=== PATIENT | male | born 2000 | race Caucasian/White ===

== ENCOUNTER 2019-07-02 14:03 | Emergency (ER) | payer MEDICAID ==
[~2019-07-02] VITALS: Ht 172.7 cm; Wt 61.0 kg
[2019-07-02] MEDS: VISCOUS LIDOCAINE 2% 15 ML UDC PO STA (14:17)
[2019-07-02] MEDS: MAGNESIUM/ALUMINUM HYDROXIDE/SIMETHICONE 30ML UDC PO STA (14:17)
[2019-07-02] MEDS: FAMOTIDINE 20MG/2ML VIAL IV ONE (14:30)
[2019-07-02] MEDS: ONDANSETRON HCL 4MG/2ML INJ IV ONE (14:30)
[2019-07-02] MEDS: DICYCLOMINE HCL 10MG/ML 2ML AMP IM ONE (14:30)
[2019-07-02] MEDS: SODIUM CHLORIDE 0.9% 1,000 ML IV ONE ×2 (14:30→16:15)
[2019-07-02 15:23] LABS: BASOPHILS % 0.3 % (0.0-2.0); EOSINOPHILS % 0.2 % (0.0-5.0); HEMOGLOBIN. 15.8 g/dL (14.0-18.0); MEAN CORPUSCULAR HEMOGLOBIN 31.4 pg (28.0-32.0); MEAN CORPUSCULAR VOLUME 91.5 fL (80.0-94.0); MEAN PLATELET VOLUME 9.3 fl (7.4-10.4); MONOCYTES % 6.1 % (2.0-8.0); NEUTROPHILS % 83.4 % (40.0-76.0); PLATELET 305 x1000/uL (130-400); RED BLOOD CELL COUNT 5.03 mill/uL (4.7-6.1); RED CELL DISTRIBUTION WIDTH 12.3 % (11.6-14.6)
[2019-07-02 15:31] LABS: CHLORIDE 107 mEq/L (98-107)
[2019-07-02] MEDS: PROCHLORPERAZINE 10MG/2ML VIAL IV ONE (16:35)
[2019-07-02] MEDS: KCL 20MEQ/100ML PREMIX 100 ML IV ONE (17:45)
[2019-07-02 20:55] VITALS: BP 125/60
== END 2019-07-02 20:55 | disposition home or self-care (01) ==
LOC: ER 14:03
DX: R10.13 Epigastric pain (principal); R10.33 Periumbilical pain; R11.2 Nausea with vomiting, unspecified; D72.829 Elevated white blood cell count, unspecified; E87.6 Hypokalemia; E87.2 Acidosis
CPT/HCPCS: 36415; 74176; 80053; 83690; 85025; 96372; 96374; 96375; 99284; J0500; J0780; J2405; J3480; J3490; J7030